=== PATIENT | male | born 1950 | race Caucasian/White ===

== ENCOUNTER 2024-05-11 15:18 | Emergency (ER) | payer OTHER ==
[2024-05-11 15:46] VITALS: BP 166/81; PULSE 73; RESP 20; TEMP 98.4; BMI 30.1
[2024-05-11] MEDS: DIPHTH,PERTUSS(ACELL),TET 0.5 ML DISP.SYRIN IM ONE (17:24)
[2024-05-11] MEDS ORDERED: DIPHTH,PERTUSS(ACELL),TET 0.5 ML DISP.SYRIN IM ONE (17:27)
[2024-05-11] MEDS ORDERED: ACETAMINOPHEN 500 MG TABLET (FP) ONE ×2 (18:18→18:19)
[2024-05-11] MEDS: ACETAMINOPHEN 500 MG TABLET (FP) PO ONE (18:20)
== END 2024-05-11 18:30 | disposition short-term general hospital (02) ==
LOC: FER 15:18
PROC: 3E0234Z Introduction of Serum, Toxoid and Vaccine into Muscle, Percutaneous Approach (ICD-10-PCS; principal; 2024-05-11)
DX: S62.522A Displaced fracture of distal phalanx of left thumb, initial encounter for closed fracture (principal); W26.9XXA Contact with unspecified sharp object(s), initial encounter; Z20.822 Contact with and (suspected) exposure to COVID-19; Z23 Encounter for immunization
CPT/HCPCS: 73130-TC-LT-FY; 87635; 90471; 90715; 99285-25